=== PATIENT | female | born 1945 | race Caucasian/White ===

== ENCOUNTER 2016-03-30 04:28 | Emergency (ER) | payer OTHER ==
[~2016-03-30] VITALS: Ht 160 cm; Wt 90.7 kg
[~2016-03-30 04:28] MED LIST: ACET-1010 PO; CLOP75TA2 PO; DONE10TA44 PO; HYDR-4100 PO; LEVO50TA77 PO; LISI10TA5 PO; LORA1TAB PO; MEMA10TA12 PO; MULT PO; NYAMYC TP; SERT50TA12 PO; TRAM50TA92 PO
[2016-03-30 04:30] VITALS: BP 142/97; PULSE 76; RESP 16; TEMP 98.1; O2SAT 97
[2016-03-30 07:26] VITALS: BP 130/85; PULSE 65; RESP 17; TEMP 98; O2SAT 98
== END 2016-03-30 07:26 | disposition home or self-care (01) ==
LOC: SED 04:28
DX: S01.01XA Laceration without foreign body of scalp, initial encounter (principal); J44.9 Chronic obstructive pulmonary disease, unspecified; J45.909 Unspecified asthma, uncomplicated; E11.9 Type 2 diabetes mellitus without complications; Z86.59 Personal history of other mental and behavioral disorders; W01.10XA Fall on same level from slipping, tripping and stumbling with subsequent striking against unspecified object, initial encounter; Y93.89 Activity, other specified; Y92.89 Other specified places as the place of occurrence of the external cause; Y99.8 Other external cause status
CPT/HCPCS: 70450-TC; 99284

== ENCOUNTER 2017-03-20 05:34 | Emergency (ER) | payer OTHER ==
[~2017-03-20] VITALS: Ht 157.5 cm; Wt 82.6 kg
[2017-03-20 05:34] VITALS: BP_SYST 152
--- NOTE | 2017-03-20 05:34 | NUR ---
+bruise and swelling to side of left thigh
--- NOTE | 2017-03-20 05:34 | NUR ---
Patient to ER bed 4 to gown for evaluation. Side rails up. Report given to VISHNU GOMEZ.
--- NOTE | 2017-03-20 05:34 | NUR ---
Pt brought in by ambulance, hx of dementia from [facility] s/p fall and sustained a 5 cm laceration of the left hand thumb. She has good ROM. Pt denied any headache, loss of consciousness. Pt c/o 7/10 ps, bleeding controlled. Pt with normal resp effort, no sob. Pt placed in bed comfortably, cleansed wound with normal saline and betadine and set up for suture of laceration. ER MD aware of pt's condition.
--- NOTE | 2017-03-20 05:35 | NUR ---
ER at bedside examining patient.
--- NOTE | 2017-03-20 05:50 | NUR ---
Suture of laceration done aseptically at bedside by ER MD Dr Carey using vicryl 3.0
--- NOTE | 2017-03-20 06:09 | NUR ---
Xray of left hand done at bedside by tech
[2017-03-20] MEDS: BACITRACIN 1 GM OINT TP ONE ×2 (06:24→06:58)
[2017-03-20] MEDS: LIDOCAINE 1% 10 MG/ML, 20 ML MDV IJ ONE (06:59)
[2017-03-20] MEDS: DIPH-TET-PERTUS Vaccine 0.5 ML VIAL (ADACEL) IM ONE (07:12)
--- NOTE | 2017-03-20 07:14 | NUR ---
Pt AAOx4, laying in bed, NAD. No needs verbalized at this time.
--- NOTE | 2017-03-20 07:14 | NUR ---
Report given to VISHNU Galloway.
--- NOTE | 2017-03-20 08:00 | NUR ---
Pt assisted to bedside commode. Ambulates with steady gait.
[2017-03-20] MEDS ORDERED: MORPHINE SULFATE 10 MG/ML VIAL IVP ONE (08:15)
[2017-03-20] MEDS: MORPHINE SULFATE 10 MG/ML VIAL IM ONE (09:13)
--- NOTE | 2017-03-20 09:55 | NUR ---
Pt c/o burning to Left thumb. Dsg to site clean, dry, intact. Dr. Isabel notified.
--- NOTE | 2017-03-20 10:18 | NUR ---
Lorene Garcia, next of kin listed as contact, called ([phone].) Message left for return call to ER for pt ride back to [facility].
--- NOTE | 2017-03-20 11:30 | NUR ---
Patient given written and verbal discharge instructions and verbalizes understanding. ER MD discussed with patient the results and treatment provided. Patient in stable condition. ID arm band removed. Rx of Tylenol with Codeine given. Patient educated on pain management and to follow up with PMD. Pain Scale 4/10. Opportunity for questions provided and answered.
== END 2017-03-20 11:30 | disposition home or self-care (01) ==
LOC: SED 05:34
DX: S61.012A Laceration without foreign body of left thumb without damage to nail, initial encounter (principal); S70.02XA Contusion of left hip, initial encounter; F03.90 Unspecified dementia, unspecified severity, without behavioral disturbance, psychotic disturbance, mood disturbance, and anxiety; Z79.899 Other long term (current) drug therapy; W19.XXXA Unspecified fall, initial encounter; Y93.89 Activity, other specified; Y92.89 Other specified places as the place of occurrence of the external cause; Y99.8 Other external cause status
CPT/HCPCS: 12002; 72192; 73130; 73700; 90471; 90715; 96372; 99284; J2270

== ENCOUNTER 2018-07-15 23:04 | Emergency (ER) | payer OTHER ==
[~2018-07-15] VITALS: Ht 157.5 cm; Wt 86.2 kg
[2018-07-15 23:04] VITALS: BP_SYST 119
[~2018-07-15 23:04] MED LIST changes: -ACET-1010 PO; +ACET-2634 PO; -LEVO50TA77 PO; +MEMA10TA PO; -MEMA10TA12 PO; +SYN50 PO
[2018-07-15] MEDS ORDERED: MECLIZINE HCL 25 MG TABLET (ANITVERT) PO ONE (23:30)
[2018-07-16] VITALS: BP_SYST 120
== END 2018-07-16 | disposition home or self-care (01) ==
LOC: SED 23:04
DX: H81.10 Benign paroxysmal vertigo, unspecified ear (principal); F03.90 Unspecified dementia, unspecified severity, without behavioral disturbance, psychotic disturbance, mood disturbance, and anxiety; E07.9 Disorder of thyroid, unspecified; Z79.01 Long term (current) use of anticoagulants; Z79.899 Other long term (current) drug therapy
CPT/HCPCS: 99283; J8597

== ENCOUNTER 2019-03-16 10:16 | Inpatient (IN) | payer OTHER ==
[~2019-03-16] VITALS: Ht 157.5 cm; Wt 82.6 kg
[2019-03-16 10:16] VITALS: BP_SYST 108
--- NOTE | 2019-03-16 10:16 | NUR ---
BROUGHT IN BY [facility] AND [facility], REPORT GIVEN TO ZULEIKA
--- NOTE | 2019-03-16 10:20 | NUR ---
PT CAME TO ER AFTER SYNCOPAL EPISODE LASTING APPROXIMATELY 10MIN. 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
--- NOTE | 2019-03-16 10:20 | NUR ---
ER at bedside examining patient.
[2019-03-16] MEDS ORDERED: LIDOCAINE 2% PO (10:26)
[2019-03-16] MEDS ORDERED: ACET325T53 PO (10:32)
--- NOTE | 2019-03-16 10:35 | NUR ---
Medication reconciliation completed with information provided by pt's medical record. Any prior medication reconciliation on file was reviewed and corrected.
[2019-03-16 11:03] LABS: BASOPHILS # (AUTO) 0.1 K/uL (0.0-0.2); BASOPHILS % (AUTO) 0.8 % (0.0-2.0); EOSINOPHILS % (AUTO) 0.2 % (0.0-4.0); HEMOGLOBIN 12.6 g/dL (12.0-16.0); LYMPHOCYTES # (AUTO) 0.6 K/uL (1.0-5.5); LYMPHOCYTES % (AUTO) 6.6 % (20.5-51.5); MEAN CORPUSCULAR HEMOGLOBIN 28 pg (27-31); MEAN CORPUSCULAR HGB CONC 32 % (32-36); MEAN CORPUSCULAR VOLUME 87 fL (79.0-98.0); MONOCYTES # (AUTO) 0.6 K/uL (0.0-1.0); MONOCYTES % (AUTO) 6.3 % (1.7-9.3); NEUTROPHILS # (AUTO) 7.7 K/uL (1.8-7.7); NEUTROPHILS % (AUTO) 86.1 % (40.0-70.0); PLATELET COUNT (AUTO) 245 K/uL (130-430); RED BLOOD CELL COUNT(AUTO) 4.48 MIL/uL (4.2-6.2); RED CELL DISTRIBUTION WIDTH 14.1 % (9.0-15.0)
--- NOTE | 2019-03-16 11:20 | NUR ---
Patient transported to radiology via GURNEY, accompanied by AGUILAR.
[2019-03-16 11:26] LABS: INR 1.1 (0.8-1.2); PROTHROMBIN TIME 10.6 SECS (9.5-12.5)
[2019-03-16 11:27] LABS: ANION GAP 8 (5-15); CHLORIDE 101 mmol/L (98-107); GLUCOSE 134 mg/dL (70-99); POTASSIUM 4.2 mmol/L (3.5-5.1); SODIUM SERUM 136 mmol/L (136-145); UREA NITROGEN, BLOOD 42 mg/dL (8-21)
--- NOTE | 2019-03-16 11:30 | NUR ---
# 20 gauge angiocath placed to RAC. Use of asceptic technique. Opsite placed over site. Blood return noted. Blood for lab drawn from site. Flushed with 10 cc of normal saline. No evidence of infiltration noted. Patient tolerated well.
[2019-03-16 11:33] LABS: ALANINE AMINOTRANSFERASE 41 U/L (12-78); ALBUMIN 3.4 g/dL (3.4-4.8); ASPARTATE AMINOTRANSFERASE 23 U/L (10-37); TOTAL BILIRUBIN 0.5 mg/dL (0.0-1.0)
[2019-03-16 11:42] LABS: CALCIUM 9.6 mg/dL (8.4-11.0)
[2019-03-16 12:54] LABS: BLOOD, URINE NEGATIVE (NEGATIVE); CLARITY/URINE SL CLOUDY (CLEAR); COLOR,URINE ORANGE (YELLOW); GLUCOSE,URINE NEGATIVE (NEGATIVE); KETONES,URINE TRACE (NEGATIVE); LEUKOCYTE ESTERASE ,URINE 1+ (NEGATIVE); NITRITE, URINE NEGATIVE (NEGATIVE); PH,URINE 5.5 (5.0-8.0); PROTEIN URINE NEGATIVE (NEGATIVE); UROBILINOGEN,URINE 0.2 (0.2-1.0)
[2019-03-16 13:29] LABS: BILIRUBIN,URINE NEGATIVE (NEGATIVE)
[2019-03-16 13:30] LABS: BACTERIA,URINE MANY /HPF (None Seen); MUCUS,URINE 1+ /LPF (None Seen); RBC,URINE 0-3 /HPF (0-3); WBC,URINE 20-50 /HPF (0-3)
[2019-03-16] MEDS ORDERED: cefTRIAXone 1 GM IVPB PREMIX 50 ML IV ONE (13:30)
[2019-03-16] MEDS ORDERED: ASPIRIN 81 MG TAB.CHEW PO ONE (13:30)
--- NOTE | 2019-03-16 13:30 | NUR ---
urine sample collected via straight cath
--- NOTE | 2019-03-16 14:00 | NUR ---
Rocephin IVPB currently infusing per MD order.
--- NOTE | 2019-03-16 15:02 | NUR ---
called for a tele bed. Spoke w/ Arline BOJORQUEZ. Stated she would call me back to obtain pt info.
--- NOTE | 2019-03-16 16:00 | NUR ---
pt currently having a meal at the bedside.
--- NOTE | 2019-03-16 17:39 | NUR ---
# 24 gauge angiocath placed to left hand. Use of asceptic technique. Opsite placed over site. Blood return noted. Blood for lab drawn from site. Flushed with 10 cc of normal saline. No evidence of infiltration noted. Patient tolerated well.
--- NOTE | 2019-03-16 17:45 | NUR ---
CONSULT: DR MCKEON PAGED DR MCKEON SPOKE WITH TRE REASON FOR CONSULT: SYNCOPE [phone]
--- NOTE | 2019-03-16 18:00 | NUR ---
Spoke with Dr. Leana HERNANDEZ made aware of the consult.
[2019-03-16] MEDS ORDERED: ACETAMINOPHEN 325 MG TABLET PO SCH (18:30)
[2019-03-16] MEDS ORDERED: HYDROcodone/ACETAMIN 10-325 MG TAB PO PRN (18:30)
--- NOTE | 2019-03-16 19:26 | NUR ---
Report given to Vanda MARES. Pt is in stable condition
--- NOTE | 2019-03-16 19:43 | NUR ---
ER Dr. Dueñas at bedside examining patient.
--- NOTE | 2019-03-16 20:01 | NUR ---
Transfer to TELEMETRY ROOM 121B via ACLS protocol. Licensed nurse present. IV present no signs or symptoms of infiltration.
--- NOTE | 2019-03-16 20:01 | NUR ---
Patient will be admitted to care of DAMON. Admitted to TELEMETRY unit. Will go to room 121B. Belongings list completed. Complete and up to date summary report printed. SBAR report to be given at bedside with opportunity for questions.
--- NOTE | 2019-03-16 20:10 | NUR ---
ADMIT NOTE Received pt from ER to the floor with a diagnosis of SYNCOPE. Admission process initiated. patient oriented to pain management, safety and call light-teach back done.
[2019-03-16 20:28] VITALS: BP_SYST 108
--- NOTE | 2019-03-16 20:30 | NUR ---
INITIAL NOTE AT INITIAL ASSESSMENT, PATIENT IS RESTING IN BED, STABLE, NO SIGNS OF RESPIRATORY DISTRESS. PATIENT VERBALIZES NO PAIN. PLAN OF CARE FOR THE EVENING IS COMMUNICATED WITH THE PATIENT. PATIENT IS UNSUCCESSFUL IN DEMONSTRATION OF CORRECT USAGE OF CALL LIGHT AT THIS TIME DUE TO COGNITIVE IMPAIRMENT. CALL LIGHT IS PLACED WITHIN REACH OF PATIENT. BED IS LOCKED, ALARMED, AND AT THE LOWEST LEVEL. FALL, SAFETY, ASPIRATION, AND RESPIRATORY PRECAUTIONS WILL BE TAKEN THROUGHOUT THE SHIFT.
--- NOTE | 2019-03-16 21:41 | NUR ---
Lazaro Bullard s/w Marvin
[2019-03-16] MEDS: MEMANTINE HCL 5 MG TABLET PO SCH (22:00)
[2019-03-16] MEDS: DONEPEZIL HCL 5 MG TABLET (ARICEPT) PO SCH (22:00)
--- NOTE | 2019-03-16 22:30 | NUR ---
NOTE SCHEDULED NIGHT TIME MEDICATIONS ARE GIVEN AT THIS TIME. PATIENT IS RESTING IN BED, STABLE, NO SIGNS OF RESPIRATORY DISTRESS. CALL LIGHT IS WITHIN REACH. BED IS LOCKED, ALARMED, AND AT THE LOWEST LEVEL.
[2019-03-17] VITALS: BP_SYST 120
--- NOTE | 2019-03-17 00:30 | NUR ---
NOTE PATIENT IS SLEEPING, STABLE, NO SIGNS OF RESPIRATORY DISTRESS. CALL LIGHT PLACED WITHIN REACH. BED IS LOCKED, ALARMED, AND AT THE LOWEST LEVEL.
--- NOTE | 2019-03-17 02:30 | NUR ---
PATIENT ASSISTED WITH BEDPAN PATIENT IS ASSISTED TO VOID USING BEDPAN AT THIS TIME, HYGIENE CARE IS ALSO GIVEN, FRESH LINENS PROVIDED. PATIENT REPOSITIONED FOR COMFORT. PATIENT TOLERATED WELL. CALL LIGHT PLACED WITHIN REACH. BED IS LOCKED, ALARMED, AND AT THE LOWEST LEVEL.
--- NOTE | 2019-03-17 04:30 | NUR ---
NOTE PATIENT IS SLEEPING, STABLE, NO SIGNS OF RESPIRATORY DISTRESS. CALL LIGHT IS WITHIN REACH. BED IS LOCKED, ALARMED, AND THE LOWEST LEVEL.
--- NOTE | 2019-03-17 05:25 | NUR ---
NOTE PATIENT IS SLEEPING, STABLE, NO SIGNS OF RESPIRATORY DISTRESS. CALL LIGHT IS WITHIN REACH. BED IS LOCKED, ALARMED, AND THE LOWEST LEVEL.
[2019-03-17] MEDS: LEVOTHYROXINE SODIUM 0.05 MG TABLET PO SCH (06:11)
--- NOTE | 2019-03-17 06:40 | NUR ---
CLOSING NOTE PATIENT SLEPT WELL THROUGHOUT THE NIGHT. AT THIS TIME, PATIENT IS RESTING IN BED, STABLE, NO SIGNS OF RESPIRATORY DISTRESS. CALL LIGHT IS WITHIN REACH. BED IS LOCKED, AND AT THE LOWEST LEVEL. FALL, SAFETY, AND RESPIRATORY PRECAUTIONS HAVE BEEN IN PLACE THROUGHOUT THE NIGHT. WILL CONTINUE TO MONITOR UNTIL SHIFT REPORT IS GIVEN AT BEDSIDE TO AM NURSE.
[2019-03-17 07:14] LABS: BASOPHILS # (AUTO) 0.1 K/uL (0.0-0.2); BASOPHILS % (AUTO) 1.1 % (0.0-2.0); EOSINOPHILS # (AUTO) 0.2 K/uL (0.0-0.4); HEMATOCRIT 35.8 % (36-48); HEMOGLOBIN 11.7 g/dL (12.0-16.0); LYMPHOCYTES # (AUTO) 1.4 K/uL (1.0-5.5); LYMPHOCYTES % (AUTO) 26.5 % (20.5-51.5); MEAN CORPUSCULAR HEMOGLOBIN 28 pg (27-31); MEAN CORPUSCULAR HGB CONC 33 % (32-36); MEAN CORPUSCULAR VOLUME 86 fL (79.0-98.0); MONOCYTES # (AUTO) 0.4 K/uL (0.0-1.0); MONOCYTES % (AUTO) 7.8 % (1.7-9.3); NEUTROPHILS # (AUTO) 3.3 K/uL (1.8-7.7); NEUTROPHILS % (AUTO) 61.6 % (40.0-70.0); PLATELET COUNT (AUTO) 229 K/uL (130-430); RED BLOOD CELL COUNT(AUTO) 4.15 MIL/uL (4.2-6.2); RED CELL DISTRIBUTION WIDTH 14.3 % (9.0-15.0); WHITE BLOOD COUNT (AUTO) 5.4 K/uL (4.8-10.8)
[2019-03-17 07:54] VITALS: BP_SYST 124
--- NOTE | 2019-03-17 08:00 | NUR ---
Note Pt resting in bed - wants to sleep right now and will eat her breakfast tray later. No SOB/resp distress or pain/discomfort noted at this time. Tele unit attached and intact. IV in left hand intact and patent at this time. Pt next to nurses' station for close observation for needs and care. No needs noted at this time. Call light within reach.
--- NOTE | 2019-03-17 08:47 | NUR ---
Nutrition Update Arturo Scale 16 noted. Pt admitted for syncope. Diet: cardiac BMI: 33.3 kg/m2 RD to follow per nutrition care standards.
[2019-03-17 08:51] LABS: ALANINE AMINOTRANSFERASE 39 U/L (12-78); ALBUMIN 3.2 g/dL (3.4-4.8); ANION GAP 5 (5-15); ASPARTATE AMINOTRANSFERASE 22 U/L (10-37); CALCIUM 8.6 mg/dL (8.4-11.0); CHLORIDE 100 mmol/L (98-107); CREATININE 0.94 mg/dL (0.55-1.30); GLUCOSE 82 mg/dL (70-99); SODIUM SERUM 136 mmol/L (136-145); THYROID STIMULATING HORMONE 2.01 uIu/mL (0.36-3.74); TOTAL BILIRUBIN 0.6 mg/dL (0.0-1.0); UREA NITROGEN, BLOOD 37 mg/dL (8-21)
[2019-03-17] MEDS: MEMANTINE HCL 5 MG TABLET PO SCH ×2 (09:06→22:05)
[2019-03-17] MEDS: SERTRALINE HCL 50 MG TABLET PO SCH (09:06)
[2019-03-17] MEDS: LISINOPRIL 10 MG TABLET (PRINIVIL) PO SCH (09:06)
[2019-03-17 10:04] LABS: CHOLESTEROL 132 mg/dL (<200); HDL CHOLESTEROL 35 mg/dL (>55); LDL CHOLESTEROL 73 mg/dL (<100); TRIGLYCERIDES 112 mg/dL (30-150)
--- NOTE | 2019-03-17 12:00 | NUR ---
Note Pt sitting up in bed with lunch tray across her. No needs noted. Call light within reach.
[2019-03-17 12:40] VITALS: BP_SYST 95
--- NOTE | 2019-03-17 15:10 | NUR ---
Rec'd call from Rob at [place] earlier today--I faxed her H&P, consults, Medications, labs--no PT notes available to --she didn't receive fax--it cut off--I am refaxing info to that same fax#
[2019-03-17 16:27] VITALS: BP_SYST 132
--- NOTE | 2019-03-17 16:35 | NUR ---
NOTE Pt requested to go to restroom, as soon as pt sat up and had her feet on side of bed, pt got very dizzy and light headed at this time. Pt assisted back - to lie down and bedpan offered to void. Pt very confused and loud in bed. Pt has had bed alarm on all shift. Call light within reach.
--- NOTE | 2019-03-17 18:15 | NUR ---
Note Pt was checked on q1' and PRN all shift for needs and care. Pt was next to nurses' station all shift for needs and care. Pt has tele unit attached and intact. IV in left hand intact and patent. No SOB/resp distress or pain/discomfort noted at this time. No needs noted at this time. Call light within reach.
[2019-03-17 20:00] VITALS: BP_SYST 100
[2019-03-17] MEDS: DONEPEZIL HCL 5 MG TABLET (ARICEPT) PO SCH (22:06)
[2019-03-18 00:06] VITALS: BP_SYST 102
[2019-03-18] MEDS: LEVOTHYROXINE SODIUM 0.05 MG TABLET PO SCH (05:01)
--- NOTE | 2019-03-18 06:16 | NUR ---
Patient turned repositioned q2. No acute distress noted. No complaint of pain or discomfort.Will continue to monitor.
--- NOTE | 2019-03-18 07:30 | NUR ---
Received report and patient from [facility] shift nurse. Patient in no acute distress. Side rails x 3 up. Call light with in reach.
[2019-03-18 08:00] VITALS: BP_SYST 119
[2019-03-18] MEDS: MEMANTINE HCL 5 MG TABLET PO SCH ×2 (09:56→21:32)
[2019-03-18] MEDS: SERTRALINE HCL 50 MG TABLET PO SCH (09:56)
[2019-03-18] MEDS: LISINOPRIL 10 MG TABLET (PRINIVIL) PO SCH (09:57)
--- NOTE | 2019-03-18 10:41 | NUR ---
MD EDMOND FITZGERALD CALLED AT SPOKE WITH TRANG.
[2019-03-18] MEDS ORDERED: ceFAZolin SODIUM 1 GM in D5W 50 ML IV ONE (11:00)
[2019-03-18 12:00] VITALS: BP_SYST 103
--- NOTE | 2019-03-18 13:30 | NUR ---
residential mortgage manager Smitha requesting discharge order from MD Cooper, contacted MD Cooper. Request Denied. Notified patient case coordinator.
[2019-03-18 18:53] VITALS: BP_SYST 106
[2019-03-18 19:00] VITALS: BP_SYST 120
[2019-03-18 20:00] VITALS: BP_SYST 120
[2019-03-18] MEDS: DONEPEZIL HCL 5 MG TABLET (ARICEPT) PO SCH (21:32)
[2019-03-18] MEDS: ceFAZolin SODIUM 1 GM in D5W 50 ML IV SCH (23:12)
[2019-03-19 00:08] VITALS: BP_SYST 117
[2019-03-19 08:00] VITALS: BP_SYST 136
--- NOTE | 2019-03-19 08:00 | NUR ---
initial notes rec patient awake leaitng breakfast, ivl on the right arm intact. no infiltration noted.denies pain at this itme. no osb noted. usues the commode at bedside.
[2019-03-19] MEDS: SERTRALINE HCL 50 MG TABLET PO SCH (09:20)
[2019-03-19] MEDS: MEMANTINE HCL 5 MG TABLET PO SCH (09:20)
[2019-03-19] MEDS: LEVOTHYROXINE SODIUM 0.05 MG TABLET PO SCH (09:21)
[2019-03-19] MEDS: LISINOPRIL 10 MG TABLET (PRINIVIL) PO SCH (09:21)
[2019-03-19] MEDS: ceFAZolin SODIUM 1 GM in D5W 50 ML IV SCH ×2 (09:22→15:02)
--- NOTE | 2019-03-19 11:44 | NUR ---
Discharge Planning: Pt has DC order. Per DCP pt's patient insurance clerk, Dorina ([phone] [phone]) is asking for packet to be sent to her. [facility] has faxed order and pt's information to Dorina at [place].
[2019-03-19 12:22] VITALS: BP_SYST 102
--- NOTE | 2019-03-19 13:30 | NUR ---
Discharge Planning: DCP faxed pt referral to [facility] (f [phone] p [phone]) DCP to follow up Addendum: 03/19/19 at 1655 by Kaliey Quiroga DP DCP LM letting ALLYN Dorina from [facility] (f [phone] p [phone]) patient was accepted back to [facility] Rm [facility], now waiting for transportation ETA. Addendum: 03/19/19 at 1659 by Kailey Quiroga DP DCP lm for Dorina from [facility] (f [phone] p [phone]) if transportation ETA comes in call nurse station give the information.
--- NOTE | 2019-03-19 13:46 | NUR ---
PHYSICAL THERAPY CO-SIGN The Physical Therapy Progress Notes documented by F[employer] Washing Machine Tender have been reviewed. Reviewed/Co-Signed by: Christopher Mark, PT Documentation Done by: GRISELDA ROCK PTA Addendum: 03/19/19 at 1347 by Christopher Mark PT Amended: Links added.
[2019-03-19 16:35] VITALS: BP_SYST 99
[2019-03-19 17:53] VITALS: BP_SYST 102
--- NOTE | 2019-03-19 19:26 | NUR ---
Called [facility], dialed [phone], s/w Janet. She said transport is coming late between 45 to 60 minutes.
--- NOTE | 2019-03-19 21:05 | NUR ---
Pt discharged by day shift staff, before my shift just waiting for the ambulance, they called and said they were running late, and that they would be here to seed cone picker the pt around 2029. Ambulance arrived at 2104 and pt left. In stable condition.
== END 2019-03-19 21:05 | DRG 640 ==
LOC: SED 10:16 → STU 14:58 → SMU 03-18 09:38
PROVIDERS: ADMIT Internal Medicine Hospice and Palliative Medicine; ATTEND Internal Medicine Hospice and Palliative Medicine
DX: E86.0 Dehydration (principal); G93.41 Metabolic encephalopathy; F03.90 Unspecified dementia, unspecified severity, without behavioral disturbance, psychotic disturbance, mood disturbance, and anxiety; I10 Essential (primary) hypertension; E66.9 Obesity, unspecified; E03.9 Hypothyroidism, unspecified; Z90.710 Acquired absence of both cervix and uterus; Z68.33 Body mass index [BMI] 33.0-33.9, adult; Z90.49 Acquired absence of other specified parts of digestive tract; Z79.899 Other long term (current) drug therapy
CPT/HCPCS: 36415; 70450-TC; 71045; 73560-TC; 80053; 80061; 81000-TC; 83880; 84443-TC; 84484; 85025; 85610-TC; 85730-TC; 87040-TC; 87081; 87086; 93005; 93306; 93880; 96365; 97110-GP; 97530-GP; 99285; G0378; J0690; J0696; J7060

== ENCOUNTER 2024-01-01 14:17 | Inpatient (IN) | payer OTHER ==
[~2024-01-01] VITALS: Ht 160 cm; Wt 77.1 kg
[2024-01-01 14:17] VITALS: BP_SYST 134; PULSE 68; RESP 19; TEMP 98.2; O2SAT 98
[~2024-01-01 14:17] MED LIST changes: -ACET-2634 PO; +ACET325T53 PO; -CLOP75TA2 PO; +HYDR-3927 PO; -HYDR-4100 PO; +LIDOCAINE 2% PO; +LISI10TA29 PO; -LISI10TA5 PO; -LORA1TAB PO; -MULT PO; -NYAMYC TP; +SERT-436 PO; -SERT50TA12 PO; -TRAM50TA92 PO
[2024-01-01 15:17] LABS: BASOPHILS # (AUTO) 0.1 K/uL (0.0-0.2); BASOPHILS % (AUTO) 0.8 % (0.0-2.0); EOSINOPHILS # (AUTO) 0.1 K/uL (0.0-0.4); EOSINOPHILS % (AUTO) 1.3 % (0.0-4.0); HEMATOCRIT 25.1 % (36-48); HEMOGLOBIN 8.3 g/dL (12.0-16.0); LYMPHOCYTES # (AUTO) 1.1 K/uL (1.0-5.5); LYMPHOCYTES % (AUTO) 16.3 % (20.5-51.5); MEAN CORPUSCULAR HEMOGLOBIN 29 pg (27-31); MEAN CORPUSCULAR HGB CONC 33 % (32-36); MEAN CORPUSCULAR VOLUME 87 fL (79.0-98.0); MONOCYTES # (AUTO) 0.5 K/uL (0.0-1.0); MONOCYTES % (AUTO) 7.1 % (1.7-9.3); NEUTROPHILS # (AUTO) 4.9 K/uL (1.8-7.7); NEUTROPHILS % (AUTO) 74.5 % (40.0-70.0); PLATELET COUNT (AUTO) 213 K/uL (130-430); RED CELL DISTRIBUTION WIDTH 13.5 % (9.0-15.0); WHITE BLOOD COUNT (AUTO) 6.6 K/uL (4.8-10.8)
[2024-01-01] MEDS: NACL 0.9% 1,000 ML IV ONE (15:28)
[2024-01-01] MEDS: PHYTONADIONE 10 MG/ML AMP SUBCUT ONE (15:28)
[2024-01-01] MEDS: PANTOPRAZOLE SODIUM 40 MG/VIAL (PROTONIX) IVP ONE (15:28)
[2024-01-01 15:29] LABS: INR 0.9 (0.8-1.2); PROTHROMBIN TIME 9.9 SECS (9.5-12.5)
[2024-01-01 15:35] LABS: ANION GAP 6 (5-15); CALCIUM 8.8 mg/dL (8.4-11.0); CARBON DIOXIDE 30 mmol/L (23-29); CHLORIDE 106 mmol/L (98-107); CREATININE 1.18 mg/dL (0.55-1.30); GLUCOSE 110 mg/dL (74-106); POTASSIUM 4.2 mmol/L (3.5-5.1); SODIUM SERUM 142 mmol/L (136-145); UREA NITROGEN, BLOOD 36 mg/dL (8-21)
[2024-01-01] MEDS ORDERED: POTASSIUM CHLORIDE 20 MEQ TABLET.ER PO PRN (18:00)
[2024-01-01] MEDS ORDERED: MUPIROCIN 2% TOPICAL OINTMENT 22 GM NS PRN (18:00)
[2024-01-01] MEDS ORDERED: ONDANSETRON HCL 4 MG/2 ML VIAL IVP PRN (18:00)
[2024-01-01] MEDS ORDERED: MORPHINE 2 MG/ML INJ. SYRINGE IVP PRN (18:00)
[2024-01-01] MEDS ORDERED: MAGNESIUM SULFATE 50 ML IV PRN (18:00)
[2024-01-01] MEDS ORDERED: MELO-89 PO (18:06)
[2024-01-01] MEDS ORDERED: LORA-258 PO (18:06)
[2024-01-01] MEDS ORDERED: APIX2.5T PO (18:06)
[2024-01-01] MEDS ORDERED: PYRI25TA3 PO (18:06)
[2024-01-01] MEDS ORDERED: KETO60CR2 TP (18:06)
[2024-01-01] MEDS: D5NS 1,000 ML IV ONE (18:54)
[2024-01-01] MEDS ORDERED: LORazepam 2 MG/ML VIAL ONE (21:05)
[2024-01-01] MEDS: LORazepam 2 MG/ML VIAL IVP PRN (21:35)
[2024-01-01] MEDS: PANTOPRAZOLE SODIUM 40 MG/VIAL (PROTONIX) IVP SCH (21:54)
[2024-01-01] MEDS: GOLYTELY / COLYTE SOLUTION 4 LITERS PO ONE (22:45)
[2024-01-01] MEDS ORDERED: HALOPERIDOL LACTATE 5 MG/ML VIAL ONE (23:24)
[2024-01-01] MEDS: LORazepam 2 MG/ML VIAL IVP ONE (23:30)
[2024-01-02] MEDS: HALOPERIDOL LACTATE 5 MG/ML VIAL IM ONE
[2024-01-02 07:30] LABS: CALCIUM 7.8 mg/dL (8.4-11.0); CARBON DIOXIDE 30 mmol/L (23-29); CHLORIDE 111 mmol/L (98-107); GLUCOSE 89 mg/dL (74-106); POTASSIUM 3.7 mmol/L (3.5-5.1); SODIUM SERUM 137 mmol/L (136-145); UREA NITROGEN, BLOOD 28 mg/dL (8-21)
[2024-01-02 07:32] LABS: ANION GAP 0 (5-15)
[2024-01-02 07:38] LABS: BASOPHILS # (AUTO) 0.1 K/uL (0.0-0.2); BASOPHILS % (AUTO) 1.3 % (0.0-2.0); EOSINOPHILS # (AUTO) 0.1 K/uL (0.0-0.4); EOSINOPHILS % (AUTO) 3.4 % (0.0-4.0); LYMPHOCYTES % (AUTO) 24.1 % (20.5-51.5); MEAN CORPUSCULAR HEMOGLOBIN 28 pg (27-31); MEAN CORPUSCULAR HGB CONC 33 % (32-36); MEAN CORPUSCULAR VOLUME 86 fL (79.0-98.0); MONOCYTES # (AUTO) 0.3 K/uL (0.0-1.0); MONOCYTES % (AUTO) 8.2 % (1.7-9.3); NEUTROPHILS # (AUTO) 2.6 K/uL (1.8-7.7); PLATELET COUNT (AUTO) 179 K/uL (130-430); RED BLOOD CELL COUNT(AUTO) 2.41 MIL/uL (4.2-6.2); RED CELL DISTRIBUTION WIDTH 13.1 % (9.0-15.0); WHITE BLOOD COUNT (AUTO) 4.2 K/uL (4.8-10.8)
[2024-01-02 08:34] VITALS: BP_SYST 138; PULSE 69; RESP 12; TEMP 97.4; O2SAT 97
[2024-01-02 09:20] LABS: HEMATOCRIT 20.7 % (36-48); HEMOGLOBIN 6.7 g/dL (12.0-16.0)
[2024-01-02] MEDS: LEVOTHYROXINE SODIUM 0.05 MG TABLET PO SCH (12:38)
[2024-01-02 12:50] VITALS: BP_SYST 132; PULSE 62; RESP 16; TEMP 97.2; O2SAT 96
[2024-01-02 16:50] VITALS: BP_SYST 123; PULSE 65; RESP 20; TEMP 97.2; O2SAT 93
[2024-01-02 19:40] LABS: HEMATOCRIT 25.6 % (36-48); HEMOGLOBIN 8.6 g/dL (12.0-16.0)
[2024-01-02 20:00] VITALS: BP_SYST 147; PULSE 78; RESP 20; TEMP 98; O2SAT 97
[2024-01-03] VITALS (7 sets, daily range): BP systolic 130–151; PULSE 63–92; RESP 18; TEMP 97–98.5; O2SAT 96–99
[2024-01-03] MEDS: NACL 0.9% 1,000 ML IV SCH (00:47)
[2024-01-03 06:05] LABS: EOSINOPHILS # (AUTO) 0.2 K/uL (0.0-0.4); EOSINOPHILS % (AUTO) 3.8 % (0.0-4.0); HEMATOCRIT 23.3 % (36-48); HEMOGLOBIN 7.7 g/dL (12.0-16.0); LYMPHOCYTES # (AUTO) 0.9 K/uL (1.0-5.5); MEAN CORPUSCULAR HEMOGLOBIN 28 pg (27-31); MEAN CORPUSCULAR HGB CONC 33 % (32-36); MEAN CORPUSCULAR VOLUME 86 fL (79.0-98.0); MONOCYTES # (AUTO) 0.4 K/uL (0.0-1.0); NEUTROPHILS # (AUTO) 3.2 K/uL (1.8-7.7); NEUTROPHILS % (AUTO) 68.2 % (40.0-70.0); PLATELET COUNT (AUTO) 199 K/uL (130-430); RED BLOOD CELL COUNT(AUTO) 2.73 MIL/uL (4.2-6.2); RED CELL DISTRIBUTION WIDTH 13.4 % (9.0-15.0); WHITE BLOOD COUNT (AUTO) 4.8 K/uL (4.8-10.8)
[2024-01-03 06:31] LABS: ANION GAP 5 (5-15); CALCIUM 8.3 mg/dL (8.4-11.0); CARBON DIOXIDE 31 mmol/L (23-29); CHLORIDE 111 mmol/L (98-107); CREATININE 1.01 mg/dL (0.55-1.30); GLUCOSE 89 mg/dL (74-106); POTASSIUM 3.9 mmol/L (3.5-5.1); SODIUM SERUM 147 mmol/L (136-145); UREA NITROGEN, BLOOD 16 mg/dL (8-21)
[2024-01-03] MEDS: fentaNYL CITRATE/PF 100 MCG/2 ML AMP ONE (10:05)
[2024-01-03] MEDS: MIDAZOLAM HCL 5 MG/5 ML VIAL ONE (10:05)
[2024-01-03] MEDS: SIMETHICONE 40 MG/0.6 ML ML ONE (10:05)
[2024-01-03] MEDS: BENZOCAINE 20% 0.5mL UD SPRAY MM ONE (10:05)
[2024-01-03] MEDS: DOCUSATE SODIUM 100 MG CAPSULE PO PRN (17:10)
[2024-01-03] MEDS: BISACODYL 5 MG TABLET.DR (DULCOLAX) PO ONE (17:12)
[2024-01-03] MEDS: ACETAMINOPHEN 325 MG TABLET PO PRN (17:16)
[2024-01-03] MEDS: GOLYTELY / COLYTE SOLUTION 4 LITERS PO ONE (20:09)
[2024-01-04] VITALS (7 sets, daily range): BP systolic 100–158; PULSE 60–74; RESP 16–19; TEMP 97.2–98.8; O2SAT 95–100
[2024-01-04] MEDS: HALOPERIDOL LACTATE 5 MG/ML VIAL IM ONE (01:24)
[2024-01-04 07:44] LABS: BASOPHILS % (AUTO) 0.9 % (0.0-2.0); EOSINOPHILS # (AUTO) 0.2 K/uL (0.0-0.4); EOSINOPHILS % (AUTO) 3.2 % (0.0-4.0); HEMATOCRIT 24.8 % (36-48); HEMOGLOBIN 8.1 g/dL (12.0-16.0); LYMPHOCYTES # (AUTO) 0.8 K/uL (1.0-5.5); LYMPHOCYTES % (AUTO) 15.5 % (20.5-51.5); MEAN CORPUSCULAR HEMOGLOBIN 28 pg (27-31); MEAN CORPUSCULAR HGB CONC 33 % (32-36); MEAN CORPUSCULAR VOLUME 87 fL (79.0-98.0); MONOCYTES # (AUTO) 0.5 K/uL (0.0-1.0); MONOCYTES % (AUTO) 10.6 % (1.7-9.3); NEUTROPHILS # (AUTO) 3.5 K/uL (1.8-7.7); NEUTROPHILS % (AUTO) 69.8 % (40.0-70.0); PLATELET COUNT (AUTO) 213 K/uL (130-430); RED BLOOD CELL COUNT(AUTO) 2.85 MIL/uL (4.2-6.2); RED CELL DISTRIBUTION WIDTH 13.4 % (9.0-15.0)
[2024-01-04 08:16] LABS: ANION GAP 9 (5-15); CALCIUM 8.2 mg/dL (8.4-11.0); CARBON DIOXIDE 30 mmol/L (23-29); CHLORIDE 107 mmol/L (98-107); CREATININE 0.97 mg/dL (0.55-1.30); GLUCOSE 86 mg/dL (74-106); POTASSIUM 3.4 mmol/L (3.5-5.1); SODIUM SERUM 146 mmol/L (136-145); UREA NITROGEN, BLOOD 12 mg/dL (8-21)
[2024-01-04] MEDS: fentaNYL CITRATE/PF 100 MCG/2 ML AMP ONE (10:04)
[2024-01-04] MEDS: MIDAZOLAM HCL 5 MG/5 ML VIAL ONE (10:04)
[2024-01-04] MEDS: KCL 20 mEq in 100 mL (PREMIX) 100 ML IV ONE (12:48)
[2024-01-04] MEDS: MORPHINE 2 MG/ML INJ. SYRINGE IVP PRN (16:58)
[2024-01-05 01:56] VITALS: BP_SYST 128; PULSE 63; RESP 19; TEMP 98.4; O2SAT 97
[2024-01-05 07:19] LABS: ANION GAP 7 (5-15); CALCIUM 8.3 mg/dL (8.4-11.0); CARBON DIOXIDE 30 mmol/L (23-29); CHLORIDE 108 mmol/L (98-107); CREATININE 1.01 mg/dL (0.55-1.30); GLUCOSE 84 mg/dL (74-106); POTASSIUM 3.5 mmol/L (3.5-5.1); SODIUM SERUM 145 mmol/L (136-145); UREA NITROGEN, BLOOD 15 mg/dL (8-21)
[2024-01-05 07:22] LABS: EOSINOPHILS # (AUTO) 0.2 K/uL (0.0-0.4); EOSINOPHILS % (AUTO) 3.7 % (0.0-4.0); HEMATOCRIT 25.2 % (36-48); HEMOGLOBIN 8.2 g/dL (12.0-16.0); LYMPHOCYTES # (AUTO) 0.8 K/uL (1.0-5.5); LYMPHOCYTES % (AUTO) 15.8 % (20.5-51.5); MEAN CORPUSCULAR HEMOGLOBIN 28 pg (27-31); MEAN CORPUSCULAR HGB CONC 33 % (32-36); MEAN CORPUSCULAR VOLUME 86 fL (79.0-98.0); MONOCYTES # (AUTO) 0.5 K/uL (0.0-1.0); MONOCYTES % (AUTO) 9.9 % (1.7-9.3); NEUTROPHILS # (AUTO) 3.4 K/uL (1.8-7.7); NEUTROPHILS % (AUTO) 69.6 % (40.0-70.0); PLATELET COUNT (AUTO) 210 K/uL (130-430); RED BLOOD CELL COUNT(AUTO) 2.93 MIL/uL (4.2-6.2); RED CELL DISTRIBUTION WIDTH 13.6 % (9.0-15.0); WHITE BLOOD COUNT (AUTO) 4.9 K/uL (4.8-10.8)
[2024-01-05 08:00] VITALS: BP_SYST 157; PULSE 58; RESP 18; TEMP 98; O2SAT 96; O2SAT 99
[2024-01-05 12:20] VITALS: BP_SYST 140; PULSE 58; RESP 18; TEMP 97.4; O2SAT 95
[2024-01-05 15:24] VITALS: BP_SYST 122; PULSE 86; RESP 18; TEMP 98.6; O2SAT 96
[2024-01-05 16:00] VITALS: BP_SYST 121; PULSE 62; RESP 18; TEMP 98; O2SAT 97
[2024-01-05 20:00] VITALS: BP_SYST 135; PULSE 67; RESP 18; TEMP 97.9; O2SAT 96
== END 2024-01-06 23:00 | DRG 393 ==
LOC: SED 14:17 → STU 17:58 → UNDODISIN 01-05 23:00
PROVIDERS: ADMIT Family Medicine; ATTEND Family Medicine
PROC: 30233N1 Transfusion of Nonautologous Red Blood Cells into Peripheral Vein, Percutaneous Approach (ICD-10-PCS; 2024-01-02)
PROC: 0DB98ZX Excision of Duodenum, Via Natural or Artificial Opening Endoscopic, Diagnostic (ICD-10-PCS; principal; 2024-01-03 09:45)
PROC: 0DJD8ZZ Inspection of Lower Intestinal Tract, Via Natural or Artificial Opening Endoscopic (ICD-10-PCS; 2024-01-04)
DX: K64.9 Unspecified hemorrhoids (principal); K57.31 Diverticulosis of large intestine without perforation or abscess with bleeding; E87.0 Hyperosmolality and hypernatremia; N17.9 Acute kidney failure, unspecified; D50.0 Iron deficiency anemia secondary to blood loss (chronic); I10 Essential (primary) hypertension; E03.9 Hypothyroidism, unspecified; F03.90 Unspecified dementia, unspecified severity, without behavioral disturbance, psychotic disturbance, mood disturbance, and anxiety; I48.91 Unspecified atrial fibrillation; Z79.1 Long term (current) use of non-steroidal anti-inflammatories (NSAID); Z79.891 Long term (current) use of opiate analgesic; Z79.01 Long term (current) use of anticoagulants; Z79.899 Other long term (current) drug therapy
CPT/HCPCS: 36415; 43235; 45378; 71045; 80048; 83735; 83880; 84484; 85018; 85025; 85610; 85730; 86886; 86900; 86901; 86920; 87081; 93005; 99285; C1769; G0378; J1630; J2060; J2250; J2270; J2470; J3010; J3430; J3480; J7030; J7050; P9021; Q9967